=== PATIENT | male | born 1985 | race Caucasian/White ===

== ENCOUNTER 2020-05-15 10:58 | Emergency (ER) | payer SELFPAY ==
[~2020-05-15] VITALS: Ht 170.2 cm; Wt 68.0 kg
--- NOTE | 2020-05-15 11:02 | NUR ---
ED Nurse Note: Pt arrived with RA 26 due epigastric chest pain starting 30 minutes ago from home that woke pt up. pt denies pain radiating. pt IV site established per ems. Per EMS 1 nitro and 1 asa given enroute. pt still has pain. pt feels diaphorectic and appears restless.
[2020-05-15 11:04] VITALS: BP 166/125
--- NOTE | 2020-05-15 11:05 | NUR ---
ED Nurse Note: Pt reports he has history of hiatal hernia, pt was wretching upon arrival no vomitious present
[2020-05-15 11:15] LABS: BASOPHILS % (AUTO) 1.1 % (0.0-2.0); EOSINOPHILS % (AUTO) 0.9 % (0.0-3.0); HEMATOCRIT 46.7 % (42.0-52.0); LYMPHOCYTES % (AUTO) 39.8 % (20.0-45.0); MEAN CORPUSCULAR VOLUME 89 FL (80-99); MONOCYTES % (AUTO) 8.4 % (1.0-10.0); NEUTROPHILS % (AUTO) 49.9 % (45.0-75.0); PLATELET COUNT 182 K/UL (150-450); RED BLOOD COUNT 5.25 M/UL (4.70-6.10); RED CELL DISTRIBUTION WIDTH 11.7 % (11.6-14.8); WHITE BLOOD COUNT 7.3 K/UL (4.8-10.8)
[2020-05-15] MEDS ORDERED: Mylanta II UD 30ml ORAL ONE (11:15)
[2020-05-15] MEDS ORDERED: Morphine Sulfate 4mg/ml Inj (IV USE ONLY) IVP ONE (11:15)
[2020-05-15] MEDS ORDERED: Lidocaine 2% Visc 15ml soln ORAL ONE (11:15)
[2020-05-15 11:34] LABS: ANION GAP 12 mmol/L (5-15); BLOOD UREA NITROGEN 10 mg/dL (7-18); CALCIUM 6.8 MG/DL (8.5-10.1); CARBON DIOXIDE 23 MMOL/L (21-32); CHLORIDE 112 MMOL/L (98-107); CREATININE 0.9 MG/DL (0.55-1.30); POTASSIUM 2.8 MMOL/L (3.5-5.1); SODIUM 147 MMOL/L (136-145)
[2020-05-15 11:38] VITALS: BP 138/72
--- NOTE | 2020-05-15 11:42 | NUR ---
ED Nurse Note: Pt was able to urinate in urinal bottle, urine sent to lab. partner Renard, handed pt phone, wallet, and passport. all items given to pt.
[2020-05-15 11:45] LABS: ALANINE AMINOTRANSFERASE 26 U/L (12-78); ALBUMIN 2.9 G/DL (3.4-5.0); ALBUMIN/GLOBULIN RATIO 1.2 (1.0-2.7); ALKALINE PHOSPHATASE 40 U/L (46-116); ASPARTATE AMINO TRANSFERASE 27 U/L (15-37); BILIRUBIN,TOTAL 0.3 MG/DL (0.2-1.0); CREATINE KINASE 109 U/L (26-308)
--- NOTE | 2020-05-15 11:50 | NUR ---
ED Nurse Note: ERMD aware of pt potassium level, waiting on further orders.
[2020-05-15 11:55] LABS: APPEARANCE,URINE SLIGHTLY CLOUDY; BILIRUBIN, URINE NEGATIVE (NEGATIVE); GLUCOSE, URINE (UA) NEGATIVE (NEGATIVE); KETONES,URINE 1+ (NEGATIVE); LEUKOCYTE ESTERASE ,URINE NEGATIVE (NEGATIVE); NITRITE,URINE NEGATIVE (NEGATIVE); PH,URINE 5 (4.5-8.0); PROTEIN,URINE NEGATIVE (NEGATIVE); UROBILINOGEN,URINE NORMAL MG/DL (0.0-1.0)
--- NOTE | 2020-05-15 11:56 | Diagnostic Imaging Report ---
EXAM: XR Chest, 1 View CLINICAL HISTORY: CP TECHNIQUE: Frontal view of the chest. COMPARISON: None FINDINGS: Hardware: None. Lungs/pleura: Bibasilar opacities. No pleural effusion or pneumothorax. Heart/mediastinum: Normal. No cardiomegaly. Soft tissues: Unremarkable. Bones: No acute fracture. Upper abdomen: Normal. IMPRESSION: Bibasilar opacities likely represent atelectasis.
[2020-05-15 12:01] LABS: COLOR,URINE YELLOW
--- NOTE | 2020-05-15 12:23 | NUR ---
ED Nurse Note: Pt CMP redrawn per ERMD order
[2020-05-15 12:45] LABS: ANION GAP 8 mmol/L (5-15); BLOOD UREA NITROGEN 11 mg/dL (7-18); CALCIUM 8.2 MG/DL (8.5-10.1); CARBON DIOXIDE 29 MMOL/L (21-32); CHLORIDE 107 MMOL/L (98-107); CREATININE 1.2 MG/DL (0.55-1.30); POTASSIUM 3.6 MMOL/L (3.5-5.1); SODIUM 144 MMOL/L (136-145)
[2020-05-15 12:49] LABS: ALANINE AMINOTRANSFERASE 46 U/L (12-78); ALBUMIN 3.5 G/DL (3.4-5.0); ALBUMIN/GLOBULIN RATIO 1.2 (1.0-2.7); ALKALINE PHOSPHATASE 56 U/L (46-116); ASPARTATE AMINO TRANSFERASE 48 U/L (15-37); BILIRUBIN,TOTAL 0.4 MG/DL (0.2-1.0)
[2020-05-15] MEDS ORDERED: Hydrogen Peroxide 473ml Bottle TOPIC ONE (12:50)
[2020-05-15 13:34] VITALS: BP 117/71
--- NOTE | 2020-05-15 13:44 | NUR ---
ED Nurse Note: MILLICENT spoke to pt at bedside. pt reports pain 1-2/10 at this time.
--- NOTE | 2020-05-15 13:46 | Emergency Room Report ---
History of Present Illness General Chief Complaint: Chest Pain Source: Patient, EMS Present Illness HPI The patient presents with severe chest pain. He was laying down and turned onto his left side. He feels intense pressure substernally and mainly feeling like there is pressure bilaterally in his lower rib cage. He rates the pain 10/10. Paramedics were summoned. There EKG was normal. His administered aspirin and nitroglycerin in the field without any relief. He is never had pain like this before. He did drink wine last night. He denies nausea or vomiting. There is no melena. He has had mild heartburn symptoms occasionally in the last few weeks. He denies fevers or chills or productive cough. The pain caused him to breathe rapidly. He denies any calf pain or hemoptysis. The patient denies exposure to COVID-19 positive contacts. No sore throat, palpitations, dysuria, abdominal pain, joint pain, rashes, depression, anxiety, visual changes, dizziness, headache. The patient has a history of reflux esophagitis and hiatal hernia. He states that he started taking Nexium at age 16. He had endoscopy performed at that time. He is stopped taking any Nexium or H2 blockers. He denies being under increased stress at this time. Risk factors for cardiac disease: none. 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 Nursing Documentation: PMH: Agreed; PSxH: Agreed Nursing Documentation-PMH Past Medical History: No History, Except For Review of Systems All Other Systems: negative except mentioned in HPI Physical Exam Vital Signs Date Time Temp Pulse Resp B/P (MAP) Pulse Ox O2 Delivery O2 Flow Rate FiO2 05/15/20 10:58 97.5 105 25 180/96 (124) 96 Room Air Sp02 EP Interpretation: reviewed, normal General Appearance: well appearing, GCS 15, mild distress, other - Patient does not have Marfan's habitus Head: normocephalic, atraumatic Eyes: bilateral eye normal inspection, bilateral eye PERRL, bilateral eye EOMI ENT: moist mucus membranes Neck: supple Respiratory: chest non-tender, lungs clear, normal breath sounds Cardiovascular #1: regular rate, rhythm Cardiovascular #2: 2+ radial (R), 2+ radial (L), 2+ femoral (R), 2+ femoral (L) Gastrointestinal: normal inspection, normal bowel sounds, non tender, no mass, non-distended Musculoskeletal: back normal, normal range of motion, gait/station normal Neurologic: alert, oriented x3, grossly normal Psychiatric: anxious - Due to pain Skin: no rash, warm/dry Medical Decision Making Diagnostic Impression: Primary Impression: Chest pain Qualified Codes: R07.89 - Other chest pain Additional Impression: History of hiatal hernia ER Course The patient presents with severe chest pain which began changing his position. Differential includes Prinzmetal angina, acute myocardial infarction, aortic aneurysm, esophageal spasm, pneumothorax, reflux esophagitis amongst others. Evaluation with EKG, chest x-ray and labs. Serial exams are indicated. The patient is placed on a threat monitoring analyst. Cardiac risk factors are nil. Vital signs and exam preclude pulmonary embolus. Patient is treated with IV hydration, Pepcid, Mylanta, Zofran and viscous lidocaine. EKG normal. Chest x-ray normal. Labs remarkable for negative troponin. Patient remarkably improved with repeat examination. Pain decreased to 5/10. Continued observation. Repeat evaluation with pain down to 1/10. Discussed findings with patient. Discussed consideration for CT angiogram. Risk factors for aortic aneurysm extremely low. With improvement with GI treatment most likely etiology is esophageal spasm or other esophageal problem. Election not to perform CT angiogram. Discussion of treatment plan with patient. Discussion of the importance for outpatient follow-up. In addition patient told to return if symptoms return. Patient stable for outpatient observation and treatment. Laboratory Tests Test 05/15/20 11:00 05/15/20 11:40 05/15/20 12:23 White Blood Count 7.3 K/UL (4.8-10.8) Red Blood Count 5.25 M/UL (4.70-6.10) Hemoglobin 16.0 G/DL (14.2-18.0) Hematocrit 46.7 % (42.0-52.0) Mean Corpuscular Volume 89 FL (80-99) Mean Corpuscular Hemoglobin 30.5 PG (27.0-31.0) Mean Corpuscular Hemoglobin Concent 34.3 G/DL (32.0-36.0) Red Cell Distribution Width 11.7 % (11.6-14.8) Platelet Count 182 K/UL (150-450) Mean Platelet Volume 7.2 FL (6.5-10.1) Neutrophils (%) (Auto) 49.9 % (45.0-75.0) Lymphocytes (%) (Auto) 39.8 % (20.0-45.0) Monocytes (%) (Auto) 8.4 % (1.0-10.0) Eosinophils (%) (Auto) 0.9 % (0.0-3.0) Basophils (%) (Auto) 1.1 % (0.0-2.0) Prothrombin Time 11.5 SEC (9.30-11.50) Prothrombin Time INR 1.0 (0.9-1.1) Activated Partial Thromboplast Time 22 SEC (23-33) L Sodium Level 147 MMOL/L (136-145) H 144 MMOL/L (136-145) Potassium Level 2.8 MMOL/L (3.5-5.1) L 3.6 MMOL/L (3.5-5.1) Chloride Level 112 MMOL/L (98-107) H 107 MMOL/L (98-107) Carbon Dioxide Level 23 MMOL/L (21-32) 29 MMOL/L (21-32) Anion Gap 12 mmol/L (5-15) 8 mmol/L (5-15) Blood Urea Nitrogen 10 mg/dL (7-18) 11 mg/dL (7-18) Creatinine 0.9 MG/DL (0.55-1.30) 1.2 MG/DL (0.55-1.30) Estimated Glomerular Filtration Rate > 60 mL/min (>60) > 60 mL/min (>60) Glucose Level 113 MG/DL (74-106) H 101 MG/DL (74-106) Calcium Level 6.8 MG/DL (8.5-10.1) L 8.2 MG/DL (8.5-10.1) #L Total Bilirubin 0.3 MG/DL (0.2-1.0) 0.4 MG/DL (0.2-1.0) Aspartate Amino Transferase (AST) 27 U/L (15-37) 48 U/L (15-37) H Alanine Aminotransferase (ALT) 26 U/L (12-78) 46 U/L (12-78) Alkaline Phosphatase 40 U/L (46-116) L 56 U/L (46-116) Total Creatine Kinase 109 U/L (26-308) Troponin I 0.000 ng/mL (0.000-0.056) Pro-B-Type Natriuretic Peptide 17 pg/mL (0-125) Total Protein 5.4 G/DL (6.4-8.2) L 6.3 G/DL (6.4-8.2) L Albumin 2.9 G/DL (3.4-5.0) L 3.5 G/DL (3.4-5.0) Globulin 2.5 g/dL 2.8 g/dL Albumin/Globulin Ratio 1.2 (1.0-2.7) 1.2 (1.0-2.7) Urine Color Yellow Urine Appearance Slightly cloudy Urine pH 5 (4.5-8.0) Urine Specific [place] 1.025 (1.005-1.035) Urine Protein Negative (NEGATIVE) Urine Glucose (UA) Negative (NEGATIVE) Urine Ketones 1+ (NEGATIVE) H Urine Blood Negative (NEGATIVE) Urine Nitrite Negative (NEGATIVE) Urine Bilirubin Negative (NEGATIVE) Urine Urobilinogen Normal MG/DL (0.0-1.0) Urine Leukocyte Esterase Negative (NEGATIVE) Urine Opiates Screen Positive (NEGATIVE) H Urine Barbiturates Screen Negative (NEGATIVE) Phencyclidine (PCP) Screen Negative (NEGATIVE) Urine Amphetamines Screen Negative (NEGATIVE) Urine Benzodiazepines Screen Negative (NEGATIVE) Urine Cocaine Screen Negative (NEGATIVE) Urine Marijuana (THC) Screen Positive (NEGATIVE) H EKG Diagnostic Results Rate: normal Rhythm: NSR ST Segments: no acute changes Rhythm Strip Diag. Results EP Interpretation: yes Rhythm: NSR, no PVC's, no ectopy Chest X-Ray Diagnostic Results Chest X-Ray Diagnostic Results : Chest X-Ray Ordered: Yes # of Views/Limited/Complete: 1 View Indication: Chest Pain EP Interpretation: Yes Interpretation: no consolidation, no effusion, no pneumothorax Impression: No acute disease Electronically Signed by: Electronically signed by Gumaro Montano MD Last Vital Signs Date Time Temp Pulse Resp B/P (MAP) Pulse Ox O2 Delivery O2 Flow Rate FiO2 9/19/20 13:52 97.5 72 18 116/76 98 Room Air Status: improved Disposition: HOME, SELF-CARE Condition: Improved Scripts Famotidine* (Pepcid 20mg tablet*) 20 Mg Tablet 20 MG ORAL DAILY, #30 TAB 0 Refills Prov: Gumaro Montano MD 05/15/20 Mag Hydrox/Aluminum Hyd/Simeth (Mylanta Maximum Strength Liq) 355 Ml Oral.susp 30 ML PO Q6HR, #240 ML Prov: Gumaro Montano MD 05/15/20 Referrals: NOT CHOSEN [facility]/,REFERRING (PCP) Gumaro Montano MD May 15, 2020 13:46
[2020-05-15] MEDS ORDERED: FAMOTIDINE20 MG ORAL (13:48)
[2020-05-15] MEDS ORDERED: MYLANTA MAXIMU355 ML PO (13:48)
[2020-05-15 13:52] VITALS: BP 116/76
--- NOTE | 2020-05-15 13:52 | NUR ---
ER DISCHARGE NOTE: Patient is cleared to be discharged per ERMD, pt is aox4, on room air, with stable vital signs. pt was given dc and prescription instructions, pt was able to verbalize understanding, pt id band and iv site removed without complications. pt is able to ambulate with steady gait. pt took all belongings.
== END 2020-05-15 13:54 | disposition home or self-care (01) ==
LOC: EDBD 10:58 → EMR 11:20
DX: R07.89 Other chest pain (principal)
CPT/HCPCS: 36415; 71045; 80053; 80307; 81003; 82550; 83880; 84484; 85025; 85610; 85730; 93005; 96361; 96374; 96375; 99284; J2270; J2405; J7030

== ENCOUNTER 2020-06-10 07:40 | Emergency (ER) | payer SELFPAY ==
[~2020-06-10] VITALS: Ht 188 cm; Wt 81.6 kg
[~2020-06-10 07:40] MED LIST: FAMOTIDINE20 MG ORAL; MYLANTA MAXIMU355 ML PO
[2020-06-10] MEDS ORDERED: Pantoprazole Inj IV ONE (08:00)
[2020-06-10] MEDS ORDERED: Omnipaque-300 100ml vial INJ PRN (08:00)
--- NOTE | 2020-06-10 08:00 | NUR ---
ED Nurse Note: Pt walked into ED for upper abdominal pain 04/05. Pt feels as if "someone is sitting on stomach." Pt states he was here recently for same problem. He is alert adn orientedx4, ambulatory. Set up on monitor.
[2020-06-10 08:01] VITALS: BP 137/85
--- NOTE | 2020-06-10 08:04 | Emergency Room Report ---
History of Present Illness General Chief Complaint: Abdominal Pain Source: Patient Present Illness HPI Patient is a 34-year-old male who presents for increased epigastric pain rating to his back. Onset of symptoms after ingestion of red wine. States he had similar symptoms in the past. Prior history of hiatal hernia. Reports having some chest discomfort. Reports this feeling like a pressure sensation. Denies any vomiting or bloody stools. States he was having pain onset approximate 1 hour prior to arrival. Last meal was last night. Denies any nausea or vomiting. States he took Pepcid without any improvement. Pain is sharp in nature. Radiates to the back. Denies prior history of ulcers. Allergies: Coded Allergies: No Known Allergies (Unverified , 05/15/20) COVID-19 Screening Contact w/high risk pt: No Experienced COVID-19 symptoms?: No COVID-19 Testing performed TELEMETRY RN: No Patient History Past Medical History: see triage record Reviewed Nursing Documentation: PMH: Agreed; PSxH: Agreed Nursing Documentation-PMH Past Medical History: No History, Except For Review of Systems All Other Systems: negative except mentioned in HPI Physical Exam Vital Signs Date Time Temp Pulse Resp B/P (MAP) Pulse Ox O2 Delivery O2 Flow Rate FiO2 06/10/20 07:47 97.7 79 18 141/86 (104) 97 Room Air Sp02 EP Interpretation: reviewed, normal General Appearance: normal inspection, well appearing, no apparent distress, alert, GCS 15, non-toxic Head: atraumatic ENT: normal ENT inspection, hearing grossly normal, normal voice Neck: normal inspection, full range of motion, supple, no bony tend Respiratory: normal inspection, lungs clear, normal breath sounds, no respiratory distress, no retraction, no wheezing Cardiovascular #1: regular rate, rhythm, no edema Gastrointestinal: normal inspection, normal bowel sounds, non tender, soft, no guarding, no hernia Genitourinary: no CVA tenderness Musculoskeletal: normal inspection, back normal, normal range of motion Neurologic: alert, motor strength/tone normal, novelties sales representative III-XII nml as tested, oriented x3, responsive, speech normal, normal inspection Psychiatric: normal inspection, judgement/insight normal, mood/affect normal Medical Decision Making Diagnostic Impression: Primary Impression: Abdominal pain Additional Impression: Common bile duct dilation ER Course Patient presented for abdominal pain. Differential diagnosis include was not limited to biliary colic, gastritis, peptic ulcer disease, myocardial infarction among others. Because of complexity of patient's case laboratory tests and imaging studies were ordered. Patient was noted to have EKG with sinus bradycardia without acute ST or T wave changes. Laboratory testing showed negative troponin. Electrolyte panel as well as white blood count appear to be normal. Patient does not appear to have any evidence of cardiac risk factors. He was given IV pain medications as well as antiacid medication. CT imaging showed nondistended loops of bowel with a prominence of the extrahepatic common bile duct up to 13 mm and questionable nonradiopaque stone in the distal CBD ultrasound imaging was ordered. Ultrasound imaging showed no evidence of gallstones. Patient was advised to follow-up for recheck in 1 to 2 days with his primary care physician. He is advised to return if he had any worsening pain persistent vomiting or any other concerns. He was advised that he may need further imaging and possibly ERCP. This medical record is generated with [employer] ranch hand livestock software. There may be some ranch hand livestock discrepancies related to use of this software Labs Test 06/10/20 08:12 06/10/20 10:13 White Blood Count 6.4 K/UL (4.8-10.8) Red Blood Count 5.65 M/UL (4.70-6.10) Hemoglobin 17.3 G/DL (14.2-18.0) Hematocrit 47.4 % (42.0-52.0) Mean Corpuscular Volume 84 FL (80-99) Mean Corpuscular Hemoglobin 30.6 PG (27.0-31.0) Mean Corpuscular Hemoglobin Concent 36.5 G/DL (32.0-36.0) Red Cell Distribution Width 11.1 % (11.6-14.8) Platelet Count 202 K/UL (150-450) Mean Platelet Volume 6.6 FL (6.5-10.1) Neutrophils (%) (Auto) 49.3 % (45.0-75.0) Lymphocytes (%) (Auto) 38.6 % (20.0-45.0) Monocytes (%) (Auto) 9.1 % (1.0-10.0) Eosinophils (%) (Auto) 1.4 % (0.0-3.0) Basophils (%) (Auto) 1.7 % (0.0-2.0) Prothrombin Time 11.4 SEC (9.30-11.50) Prothromb Time International Ratio 1.0 (0.9-1.1) Activated Partial Thromboplast Time 26 SEC (23-33) Sodium Level 141 MMOL/L (136-145) Potassium Level 3.6 MMOL/L (3.5-5.1) Chloride Level 103 MMOL/L (98-107) Carbon Dioxide Level 29 MMOL/L (21-32) Anion Gap 9 mmol/L (5-15) Blood Urea Nitrogen 12 mg/dL (7-18) Creatinine 1.2 MG/DL (0.55-1.30) Estimat Glomerular Filtration Rate > 60 mL/min (>60) Glucose Level 103 MG/DL (74-106) Calcium Level 9.0 MG/DL (8.5-10.1) Total Bilirubin 0.2 MG/DL (0.2-1.0) Aspartate Amino Transf (AST/SGOT) 19 U/L (15-37) Alanine Aminotransferase (ALT/SGPT) 24 U/L (12-78) Alkaline Phosphatase 68 U/L (46-116) Troponin I 0.000 ng/mL (0.000-0.056) Total Protein 6.9 G/DL (6.4-8.2) Albumin 4.2 G/DL (3.4-5.0) Globulin 2.7 g/dL Albumin/Globulin Ratio 1.6 (1.0-2.7) Lipase 106 U/L (73-393) Urine Color Pale yellow Urine Appearance Clear Urine pH 8 (4.5-8.0) Urine Specific [place] 1.010 (1.005-1.035) Urine Protein 1+ (NEGATIVE) Urine Glucose (UA) Negative (NEGATIVE) Urine Ketones Negative (NEGATIVE) Urine Blood Negative (NEGATIVE) Urine Nitrite Negative (NEGATIVE) Urine Bilirubin Negative (NEGATIVE) Urine Urobilinogen Normal MG/DL (0.0-1.0) Urine Leukocyte Esterase Negative (NEGATIVE) Urine RBC 0 /HPF (0 - 0) Urine WBC 0 /HPF (0 - 0) Urine Squamous Epithelial Cells Occasional /LPF Urine Bacteria Occasional /HPF (NONE) Last Vital Signs Date Time Temp Pulse Resp B/P (MAP) Pulse Ox O2 Delivery O2 Flow Rate FiO2 06/10/20 07:47 97.7 79 18 141/86 (104) 97 Room Air Status: improved Disposition: HOME, SELF-CARE Condition: Stable Scripts Hydrocodone Bit/Acetaminophen 5-325* (NORCO 5-325 TABLET*) 1 Each Tablet 1 TAB ORAL Q6H PRN for FOR PAIN, #12 TAB 0 Refills Prov: Ricardo Naranjo MD 06/10/20 Referrals: NOT CHOSEN [facility]/,REFERRING (PCP) Ricardo Naranjo MD Jun 10, 2020 08:03
[2020-06-10] MEDS ORDERED: Morphine Sulfate 4mg/ml Inj (IV USE ONLY) IVP ONE (08:15)
--- NOTE | 2020-06-10 08:30 | NUR ---
ED Nurse Note: Pt taken to CT.
[2020-06-10 08:36] LABS: BASOPHILS % (AUTO) 1.7 % (0.0-2.0); EOSINOPHILS % (AUTO) 1.4 % (0.0-3.0); HEMATOCRIT 47.4 % (42.0-52.0); HEMOGLOBIN 17.3 G/DL (14.2-18.0); LYMPHOCYTES % (AUTO) 38.6 % (20.0-45.0); MEAN CORPUSCULAR VOLUME 84 FL (80-99); MONOCYTES % (AUTO) 9.1 % (1.0-10.0); NEUTROPHILS % (AUTO) 49.3 % (45.0-75.0); PLATELET COUNT 202 K/UL (150-450); RED BLOOD COUNT 5.65 M/UL (4.70-6.10); RED CELL DISTRIBUTION WIDTH 11.1 % (11.6-14.8); WHITE BLOOD COUNT 6.4 K/UL (4.8-10.8)
[2020-06-10 08:44] LABS: ANION GAP 9 mmol/L (5-15); BLOOD UREA NITROGEN 12 mg/dL (7-18); CARBON DIOXIDE 29 MMOL/L (21-32); CHLORIDE 103 MMOL/L (98-107); CREATININE 1.2 MG/DL (0.55-1.30); POTASSIUM 3.6 MMOL/L (3.5-5.1); SODIUM 141 MMOL/L (136-145)
[2020-06-10 08:48] LABS: ALANINE AMINOTRANSFERASE 24 U/L (12-78); ALBUMIN 4.2 G/DL (3.4-5.0); ALBUMIN/GLOBULIN RATIO 1.6 (1.0-2.7); ALKALINE PHOSPHATASE 68 U/L (46-116); ASPARTATE AMINO TRANSFERASE 19 U/L (15-37); BILIRUBIN,TOTAL 0.2 MG/DL (0.2-1.0)
--- NOTE | 2020-06-10 09:40 | Diagnostic Imaging Report ---
EXAM: CT CT Abdomen Pelvis w/Contrast INDICATION: Epigastric pain. COMPARISON: None TECHNIQUE: Axial images were obtained through the abdomen pelvis with intravenous contrast. Sagittal and coronal reformats are generated. All CT scans at this facility are performed using dose modulation techniques as appropriate to a performed exam including the following: automated exposure control with adjustment of the mA and/or kV according to patient size. RADIATION DOSE: CTDIvol: 6.1 mGy DLP: 341.7 mGy-cm Dose information generated by the CT scanner is available in PACS. FINDINGS: Mild atelectasis is noted in the lung bases. There is a circumscribed low-density cyst at the dome of the liver. Spleen is homogeneous. Gallbladder is without sludge or stone and there is no wall thickening. There is prominence of the extrahepatic duct with CBD up to 13 mm. There is questionable nonradiopaque stone in the distal CBD. The pancreas appears unremarkable. Adrenals are normal. There is a right renal cyst. No hydronephrosis. Small bowel loops are nondistended. The colon is also nondistended with average amount of stool. The appendix is normal. There is no free fluid or free air. No pathologic adenopathy demonstrated. Urinary bladder appears unremarkable. There is no suspicious superficial soft tissue or osseous abnormality. IMPRESSION: DILATED CBD WITH QUESTIONABLE NONCALCIFIED STONE IN THE DISTAL CBD. PLEASE CORRELATE WITH LABS AND CONSIDER FOLLOW-UP ERCP/MRCP. HEPATIC CYST.
[2020-06-10 10:35] VITALS: BP 131/83
[2020-06-10 10:47] LABS: APPEARANCE,URINE CLEAR; BILIRUBIN, URINE NEGATIVE (NEGATIVE); COLOR,URINE PALE YELLOW; GLUCOSE, URINE (UA) NEGATIVE (NEGATIVE); KETONES,URINE NEGATIVE (NEGATIVE); LEUKOCYTE ESTERASE ,URINE NEGATIVE (NEGATIVE); NITRITE,URINE NEGATIVE (NEGATIVE); PH,URINE 8 (4.5-8.0); PROTEIN,URINE 1+ (NEGATIVE); UROBILINOGEN,URINE NORMAL MG/DL (0.0-1.0)
[2020-06-10] MEDS ORDERED: NORCO 5-325 TA1 EAC1 ORAL (11:28)
[2020-06-10 11:35] VITALS: BP 128/75
--- NOTE | 2020-06-10 11:35 | NUR ---
ED Nurse Note: Pt cleared by ERMD for discharge. DC instructions/prescription was given and explained to pt and verbalized understanding of teachings. All medical deviecs such as ID band and IV line removed. Pt is AAO x4, ambulatory and left with all personal belongings.
--- NOTE | 2020-06-10 15:53 | Diagnostic Imaging Report ---
Indication: Increased epigastric pain radiating to his back, worse after ingestion of red wine. Chest discomfort and pressure Technique: Tapia-scale and duplex images of the upper abdomen were obtained Comparison: Reference made to abdomen pelvis CT of earlier the same day Findings: Gallbladder demonstrates no stones. The wall is borderline thickened, however, measuring just over 3 mm thick. Sonographic Pena's sign is negative. Common bile duct measures 9 mm in diameter. No intrahepatic biliary ductal dilatation. Liver demonstrates normal echogenicity, no focal abnormality. Portal vein and hepatic veins are patent. Pancreas is incompletely visualized due to overlying bowel gas, visualized portions are unremarkable. Spleen is unremarkable. Left kidney measures 10 cm in length. Right kidney measures 10.1 cm length. Both kidneys demonstrate normal echogenicity. There is no hydronephrosis. And a small right renal cyst . Abdominal aorta is partially obscured by bowel gas, visualized portions are non-aneurysmal . Impression: Mildly dilated common bile duct, significance/etiology uncertain Mild gallbladder wall thickening, but no gallstones. Possibility of acute acalculous cholecystitis should be considered; consider nuclear medicine hepatobiliary scan if there is high clinical suspicion Note suboptimal visualization of the pancreas and abdominal aorta
--- NOTE | 2020-06-13 19:37 | Cardiology Report ---
APPROVED REPORT EKG Measurement Heart [id number] <Conclusion> Sinus bradycardia Otherwise normal ECG
== END 2020-06-10 11:35 | disposition home or self-care (01) ==
LOC: EMR 07:56
DX: K83.8 Other specified diseases of biliary tract (principal); R10.13 Epigastric pain; R00.1 Bradycardia, unspecified; J98.11 Atelectasis; K76.89 Other specified diseases of liver; N28.1 Cyst of kidney, acquired
CPT/HCPCS: 36415; 74177; 76700; 80053; 81003; 83690; 84484; 85025; 85610; 85730; 86850; 86900; 86901; 93005; 96361; 96374; 96375; 99284; C9113; J2270; J7030; Q9965